=== PATIENT | male | born 2000 | race Caucasian/White ===

== ENCOUNTER 2024-08-23 12:00 | Emergency (ER) | payer BC ==
[2024-08-23 12:12] VITALS: BP 155/74; PULSE 93; RESP 18; TEMP 98.4; BMI 22.8
[2024-08-23] MEDS ORDERED: IBUPROFEN 600 MG TABLET (FP) PO ONE (13:41)
[2024-08-23] MEDS ORDERED: predniSONE 20 MG TABLET (UD) ONE (13:41)
[2024-08-23] MEDS: IBUPROFEN 600 MG TABLET (FP) PO ONE (13:42)
[2024-08-23] MEDS: predniSONE 20 MG TABLET (UD) PO ONE (13:42)
== END 2024-08-23 14:13 | disposition home or self-care (01) ==
LOC: JERFT 12:00
DX: M65.241 Calcific tendinitis, right hand (principal)
CPT/HCPCS: 99283-25